=== PATIENT | male | born 1975 | race African-American/Black ===

== ENCOUNTER 2018-10-24 20:43 | Emergency (ER) | payer SELFPAY ==
[2018-10-24 20:48] VITALS: BP 143/83; PULSE 64; TEMP 98.6; BMI 26.6
--- NOTE | 2018-10-24 20:59 | PDOC ---
Rapid Medical Evaluation Chief Complaint: Eye Problem Time Seen by Provider: 10/24/18 20:47 Medical Evaluation: Allergies Allergy/AdvReac Type Severity Reaction Status Date / Time No Known Allergies Allergy Verified 10/24/18 20:48 Vital Signs Temp Pulse Resp BP Pulse Ox 98.6 F 64 18 143/83 98 10/24/18 20:44 10/24/18 20:44 10/24/18 20:44 10/24/18 20:44 10/24/18 20:44 10/24/18 20:53 I have performed a brief in-person evaluation of this patient. The patient presents with a chief complaint of: R eye pain/swelling/redness x several days. No f/c. States he might have had similar condition to same eye 1 yr ago and tx with tobradex by an tie worker. No sig pmhx Pertinent physical exam findings: R eye w/ exquisitely tender induration w/ increased warmth and surrounding erythema over site of lacrimal sac, C/F ? dacrocystitis vs periorbital celllulitis I have ordered the following:basic labs The patient will proceed to the ED for further evaluation. Discharge Disposition - Diagnosis Eye swelling - Referrals - Patient Instructions - Post Discharge Activity
--- NOTE | 2018-10-24 22:31 | PDOC ---
*Physical Exam - Vital Signs Last Vital Signs Temp Pulse Resp BP Pulse Ox 98.6 F 64 18 143/83 98 10/24/18 20:44 10/24/18 20:44 10/24/18 20:44 10/24/18 20:44 10/24/18 20:44 Medical Decision Making - Medical Decision Making 10/24/18 22:31 Patient seen by the advanced practice provider under my direct supervision. Ancillary testing reviewed as necessary. I agree with plan as outlined by the advanced practice provider. *DC/Admit/Observation/Transfer Diagnosis at time of Disposition: Preseptal cellulitis of right lower eyelid - Discharge Dispostion Disposition: AGAINST MEDICAL ADVICE - Prescriptions Prescriptions: Clindamycin [Cleocin -] 300 mg PO TID #30 capsule Tobramycin 0.3% Ophth Soln [Tobrex Ophthalmic Solution -] 1 drop OS Q4HWA #1 bottle - Referrals - Patient Instructions - Post Discharge Activity
--- NOTE | 2018-10-24 22:48 | PDOC ---
History of Present Illness - General Chief Complaint: Eye Problem Stated Complaint: EYE PAIN Time Seen by Provider: 10/24/18 20:47 History Source: Patient - History of Present Illness Initial Comments: 10/24/18 22:42 43 year old male with right lower lid swelling and pain x 1 day. patient reports that this happened 1 year ago resolved with tobradex eye drops/ patient has been doing warm compress with minimal relief. reports he has an eye appointment tomorrow was afraid the swelling would be worse in the am. denies fever/ chills, NVD, abdominal pain, vision loss or visual disturbance. no pain to the eye with movement. 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 Past History - Past Medical History Allergies/Adverse Reactions: Allergies Allergy/AdvReac Type Severity Reaction Status Date / Time No Known Allergies Allergy Verified 10/24/18 20:48 Home Medications: Ambulatory Orders No Home Medications 0 dose .ROUTE UTDICT 04/23/12 Clindamycin [Cleocin -] 300 mg PO TID #30 capsule 10/24/18 Tobramycin 0.3% Ophth Soln [Tobrex Ophthalmic Solution -] 1 drop OS Q4HWA #1 bottle 10/24/18 COPD: No - Suicide/Smoking/Psychosocial Hx Smoking Status: No Smoking History: Never smoked Number of Cigarettes Smoked Daily: 0 Review of Systems - Review of Systems Able to Perform ROS?: Yes Is the patient limited Russian proficient: No Constitutional: No: Symptoms Reported, See HPI, Chills, Diaphoresis, Fever, Loss of Appetite, Malaise, Night Sweats, Weakness, Weight Stable, Unintentional Wgt. Loss, Unexplained wgt Loss, Other HEENTM: Yes: Eye Pain *Physical Exam - Vital Signs Last Vital Signs Temp Pulse Resp BP Pulse Ox 98.6 F 64 18 143/83 98 10/24/18 20:44 10/24/18 20:44 10/24/18 20:44 10/24/18 20:44 10/24/18 20:44 - Physical Exam General Appearance: Yes: Appropriately Dressed HEENT: positive: Other (PERRLA, pain and fluctuant mass to lower lid, + erythema and swelling to the lower lid.) Neck: negative: Lymphadenopathy (R), Lymphadenopathy (L) Neurologic: positive: Fully Oriented, Alert, Normal Mood/Affect Medical Decision Making - Medical Decision Making A: Preseptal cellulitis P: clindamycin ophthalmology follow up tomorrow as scheduled. 10/24/18 22:47 i advised the patient orbital CT and labs. patient refused. reports that he rather go to the body component engineer tomorrow. requesting antibiotics for infection. will give clinidamycin IV first dose. strict return precautions reviewed with patient, *DC/Admit/Observation/Transfer Diagnosis at time of Disposition: Preseptal cellulitis of right lower eyelid - Discharge Dispostion Disposition: HOME Condition at time of disposition: Fair - Prescriptions Prescriptions: Clindamycin [Cleocin -] 300 mg PO TID #30 capsule Tobramycin 0.3% Ophth Soln [Tobrex Ophthalmic Solution -] 1 drop OS Q4HWA #1 bottle - Referrals - Patient Instructions Printed Discharge Instructions: Cellulitis Additional Instructions: warm compress to the eye take Clindamycin as prescribed. follow up with your eye doctor as soon as possible. Additional Instructions: * Please call your personal physician to report your Emergency Department visit and to report your progress, if any. * If there is no improvement in symptoms in 2 days call your physician. * Return to the Emergency Department for any worsening symptoms. - Post Discharge Activity Forms/Work/School Notes: Back to Work
[2018-10-24] MEDS ORDERED: CLINDAMYCIN 600MG PREMIX IVPB 600 MG/50 ML BAG IVPB ONE ×3 (23:10→23:22)
== END 2018-10-25 00:47 | disposition home or self-care (01) ==
LOC: JER 20:43
DX: L03.213 Periorbital cellulitis (principal)
CPT/HCPCS: 99281-25